=== PATIENT | female | born 1995 | race Caucasian/White ===

== ENCOUNTER 2021-09-12 12:45 | Outpatient (CLI) | payer BC | END 2021-09-12 23:59 | disposition home or self-care (01) | LOC: RAD 12:45 | PROVIDERS: ATTEND Specialist | DX: O26.843 Uterine size-date discrepancy, third trimester (principal); Z3A.33 33 weeks gestation of pregnancy | CPT/HCPCS: 76805 ==

== ENCOUNTER 2022-03-20 14:08 | Outpatient (CLI) | payer BC ==
[2022-03-20 14:41] LABS: BASOPHILS # (AUTO) 0.1 X10'3 (0-0.2); BASOPHILS % (AUTO) 0.6 % (0-1); EOSINOPHILS # (AUTO) 0.1 X10'3 (0-0.9); EOSINOPHILS % (AUTO) 1.1 % (0-6); HEMATOCRIT 39.7 % (35.0-45.0); HEMOGLOBIN 13.6 g/dl (12.0-16.0); LYMPHOCYTES # (AUTO) 1.8 X10'3 (1.1-4.8); LYMPHOCYTES % (AUTO) 21.5 % (21-51); MEAN CORPUSCULAR HEMOGLOBIN 29.8 PG (27.0-31.0); MEAN CORPUSCULAR HGB CONC 34.4 g/dL (33.0-36.5); MEAN CORPUSCULAR VOLUME 86.8 FL (78-98); MEAN PLATELET VOLUME 8.2 FL (7.4-10.4); MONOCYTES # (AUTO) 0.5 X10'3 (0-0.9); MONOCYTES % (AUTO) 6.4 % (2-12); NEUTROPHILS # (AUTO) 5.8 X10'3 (1.8-7.7); NEUTROPHILS % (AUTO) 70.4 % (42-75); PLATELET COUNT 235 X10'3 (140-440); RED BLOOD COUNT 4.57 X10'6 (4.20-5.60); RED CELL DISTRIBUTION WIDTH 12.8 % (11.5-14.5); WHITE BLOOD COUNT 8.2 X10'3 (4.5-11.0)
[2022-03-20 14:50] LABS: HEMOGLOBIN A1C 5.5 % (4.5-6.2)
[2022-03-20 14:50] LABS: CLARITY,URINE CLEAR (Clear); COLOR,URINE YELLOW (Yellow); GLUCOSE, URINE NEGATIVE (Neg); KETONES,URINE NEGATIVE (Neg); LEUKOCYTE ESTERASE ,URINE NEGATIVE (Neg); NITRITES, URINE NEGATIVE (Neg); OCCULT BLOOD,URINE NEGATIVE (Neg); PH,URINE 5.5 (4.8-8.0); PROTEIN,URINE NEGATIVE (Neg); UROBILINOGEN,URINE 0.2 E.U/dL (0.2-1.0)
[2022-03-20 14:58] LABS: ALANINE AMINOTRANSFERASE 33 U/L (12-78); ALBUMIN 4.3 G/DL (3.4-5.0); ALBUMIN/GLOBULIN RATIO 1.3 (1.1-1.5); ALKALINE PHOSPHATASE 143 IU/L (46-116); ANION GAP 11 (8-16); ASPARTATE AMINO TRANSFERASE 25 U/L (10-37); BILIRUBIN,TOTAL 0.3 MG/DL (0.1-1.0); BLOOD UREA NITROGEN 20 MG/DL (7-18); CALCIUM 8.9 MG/DL (8.5-10.1); CHLORIDE 104 MMOL/L (99-107); CREATININE 0.91 MG/DL (0.40-0.90); GLUCOSE 89 MG/DL (70-104); POTASSIUM 3.7 MMOL/L (3.5-5.1); SODIUM 142 MMOL/L (135-145); TOTAL CARBON DIOXIDE 26.7 MMOL/L (24-32); TOTAL PROTEIN 7.7 G/DL (6.4-8.2); eGFR 74 ML/MIN
[2022-03-20 15:05] LABS: UA COLLECTION TYPE CLN CATCH MIDSTREAM
[2022-03-20 15:07] LABS: CHOL/HDL RATIO 2.5 (0.00-4.99); CHOLESTEROL 164 MG/DL (0-200); HDL CHOLESTEROL 66 MG/DL (35-60); LDL CHOLESTEROL 85 MG/DL (50-100); TRIGLYCERIDES 120 MG/DL (20-135)
== END 2022-03-20 23:59 | disposition home or self-care (01) ==
LOC: LAB 14:08
PROVIDERS: ATTEND Nurse Practitioner
DX: Z00.00 Encounter for general adult medical examination without abnormal findings (principal)
CPT/HCPCS: 36415; 80053; 80061; 81003; 82306; 82607; 82746; 83036; 84439; 84443; 85025

== ENCOUNTER 2022-11-27 14:32 | Outpatient (CLI) | payer BC ==
[2022-11-27 14:59] LABS: BASOPHILS % (AUTO) 0.5 % (0-1); EOSINOPHILS # (AUTO) 0.1 X10'3 (0-0.9); EOSINOPHILS % (AUTO) 1.1 % (0-6); HEMATOCRIT 40.7 % (35.0-45.0); HEMOGLOBIN 13.8 g/dl (12.0-16.0); LYMPHOCYTES # (AUTO) 1.9 X10'3 (1.1-4.8); LYMPHOCYTES % (AUTO) 22.3 % (21-51); MEAN CORPUSCULAR HEMOGLOBIN 30.2 PG (27.0-31.0); MEAN CORPUSCULAR HGB CONC 33.9 g/dL (33.0-36.5); MEAN PLATELET VOLUME 8.2 FL (7.4-10.4); MONOCYTES # (AUTO) 0.6 X10'3 (0-0.9); MONOCYTES % (AUTO) 6.7 % (2-12); NEUTROPHILS % (AUTO) 69.4 % (42-75); PLATELET COUNT 221 X10'3 (140-440); RED BLOOD COUNT 4.57 X10'6 (4.20-5.60); RED CELL DISTRIBUTION WIDTH 12.8 % (11.5-14.5); WHITE BLOOD COUNT 8.7 X10'3 (4.5-11.0)
[2022-11-27 15:10] LABS: CLARITY,URINE SLIGHTLY CLOUDY (Clear); COLOR,URINE YELLOW (Yellow); GLUCOSE, URINE NEGATIVE (Neg); KETONES,URINE NEGATIVE (Neg); LEUKOCYTE ESTERASE ,URINE NEGATIVE (Neg); NITRITES, URINE NEGATIVE (Neg); OCCULT BLOOD,URINE NEGATIVE (Neg); PH,URINE 6.5 (4.8-8.0); PROTEIN,URINE NEGATIVE (Neg); UA COLLECTION TYPE CLN CATCH MIDSTREAM; UROBILINOGEN,URINE 0.2 E.U/dL (0.2-1.0)
[2022-11-27 15:22] LABS: RBC,URINE 0-2 /HPF (0-2); SQUAMOUS EPITHELIAL CELL,UR MODERATE /LPF (FEW); WBC,URINE 0-4 /HPF (0-4)
[2022-11-27 15:23] LABS: BACTERIA,URINE 1+ /HPF (Neg)
[2022-11-27 15:36] LABS: ALANINE AMINOTRANSFERASE 17 U/L (12-78); ALBUMIN/GLOBULIN RATIO 1.1 (1.1-1.5); ALKALINE PHOSPHATASE 101 IU/L (46-116); ANION GAP 8 (8-16); ASPARTATE AMINO TRANSFERASE 19 U/L (10-37); BILIRUBIN,TOTAL 0.2 MG/DL (0.1-1.0); BLOOD UREA NITROGEN 14 MG/DL (7-18); BUN/CREATININE RATIO 25.5 (6.6-38.0); CALCIUM 9.3 MG/DL (8.5-10.1); CHLORIDE 102 MMOL/L (99-107); CHOL/HDL RATIO 2.5 (0.00-4.99); CHOLESTEROL 139 MG/DL (0-200); CREATININE 0.55 MG/DL (0.40-0.90); GLUCOSE 87 MG/DL (70-104); HDL CHOLESTEROL 55 MG/DL (35-60); LDL CHOLESTEROL 66 MG/DL (50-100); POTASSIUM 3.5 MMOL/L (3.5-5.1); SODIUM 137 MMOL/L (135-145); TOTAL CARBON DIOXIDE 27.2 MMOL/L (24-32); TOTAL PROTEIN 7.5 G/DL (6.4-8.2); TRIGLYCERIDES 60 MG/DL (20-135); eGFR > 90 ML/MIN
[2022-11-27 15:41] LABS: HEMOGLOBIN A1C 4.9 % (4.5-6.2)
== END 2022-11-27 23:59 | disposition home or self-care (01) ==
LOC: LAB 14:32
PROVIDERS: ATTEND Nurse Practitioner
DX: Z00.00 Encounter for general adult medical examination without abnormal findings (principal)
CPT/HCPCS: 36415; 80053; 80061; 81001; 82306; 82607; 82746; 83036; 84439; 84443; 85025

== ENCOUNTER 2022-12-24 10:36 | Outpatient (CLI) | payer BC ==
[2022-12-24 11:23] LABS: CLARITY,URINE SLIGHTLY CLOUDY (Clear); COLOR,URINE YELLOW (Yellow); GLUCOSE, URINE NEGATIVE (Neg); KETONES,URINE NEGATIVE (Neg); LEUKOCYTE ESTERASE ,URINE TRACE (Neg); NITRITES, URINE NEGATIVE (Neg); OCCULT BLOOD,URINE TRACE-INTACT (Neg); PROTEIN,URINE NEGATIVE (Neg); UROBILINOGEN,URINE 0.2 E.U/dL (0.2-1.0)
[2022-12-24 11:27] LABS: UA COLLECTION TYPE CLN CATCH MIDSTREAM
[2022-12-24 11:34] LABS: BACTERIA,URINE 1+ /HPF (Neg); MUCUS STRANDS FEW /LPF (Neg); SQUAMOUS EPITHELIAL CELL,UR MANY /LPF (FEW)
[2022-12-24 11:48] LABS: URINE AMPHETAMINE SCREEN NEGATIVE (Neg); URINE BARBITUATE SCREEN NEGATIVE (Neg); URINE BENZODIAZEPINES SCREEN NEGATIVE (Neg); URINE CANNABINOID SCREEN NEGATIVE (Neg); URINE COCAINE SCREEN NEGATIVE (Neg); URINE METHADONE SCREEN NEGATIVE (Neg); URINE OPIATE SCREEN NEGATIVE (Neg); URINE PHENCYCLIDINE SCREEN NEGATIVE (Neg)
[2022-12-24 12:08] LABS: BASOPHILS % (AUTO) 0.6 % (0-1); EOSINOPHILS % (AUTO) 0.4 % (0-6); HEMATOCRIT 42.7 % (35.0-45.0); HEMOGLOBIN 14.7 g/dl (12.0-16.0); LYMPHOCYTES # (AUTO) 1.8 X10'3 (1.1-4.8); MEAN CORPUSCULAR HEMOGLOBIN 30.2 PG (27.0-31.0); MEAN CORPUSCULAR HGB CONC 34.4 g/dL (33.0-36.5); MEAN CORPUSCULAR VOLUME 87.9 FL (78-98); MEAN PLATELET VOLUME 8.3 FL (7.4-10.4); MONOCYTES # (AUTO) 0.4 X10'3 (0-0.9); MONOCYTES % (AUTO) 4.8 % (2-12); NEUTROPHILS # (AUTO) 6.5 X10'3 (1.8-7.7); NEUTROPHILS % (AUTO) 74.2 % (42-75); PLATELET COUNT 236 X10'3 (140-440); RED BLOOD COUNT 4.86 X10'6 (4.20-5.60); RED CELL DISTRIBUTION WIDTH 12.7 % (11.5-14.5); WHITE BLOOD COUNT 8.8 X10'3 (4.5-11.0)
[2022-12-24 12:45] LABS: HIV ANTIBODY 1&2 RAPID NON-REACTIVE (Neg)
[2022-12-25 14:01] LABS: HBSAG SCREEN Negative (Negative); HEPATITIS C VIRUS ANTIBODY Non Reactive (Non Reactive)
== END 2022-12-24 23:59 | disposition home or self-care (01) ==
LOC: LAB 10:36
PROVIDERS: ATTEND Specialist
DX: O23.41 Unspecified infection of urinary tract in pregnancy, first trimester (principal); N39.0 Urinary tract infection, site not specified; Z3A.00 Weeks of gestation of pregnancy not specified
CPT/HCPCS: 36415; 80305; 81001; 85025; 86592; 86703; 86762; 86803; 86885; 86900; 86901; 87088; 87340; 87522

== ENCOUNTER 2023-01-01 11:32 | Outpatient (CLI) | payer BC ==
[2023-01-01 15:19] LABS: CLARITY,URINE CLEAR (Clear); COLOR,URINE YELLOW (Yellow); GLUCOSE, URINE NEGATIVE (Neg); KETONES,URINE NEGATIVE (Neg); LEUKOCYTE ESTERASE ,URINE NEGATIVE (Neg); NITRITES, URINE NEGATIVE (Neg); OCCULT BLOOD,URINE NEGATIVE (Neg); PROTEIN,URINE NEGATIVE (Neg); UROBILINOGEN,URINE 0.2 E.U/dL (0.2-1.0)
[2023-01-01 15:39] LABS: UA COLLECTION TYPE CLN CATCH MIDSTREAM
== END 2023-01-01 23:59 | disposition home or self-care (01) ==
LOC: LAB 11:32
PROVIDERS: ATTEND Nurse Practitioner
DX: Z00.00 Encounter for general adult medical examination without abnormal findings (principal)
CPT/HCPCS: 81003

== ENCOUNTER 2023-04-20 09:00 | Outpatient (CLI) | payer BC | END 2023-04-20 23:59 | disposition home or self-care (01) | LOC: VAS 09:00 | PROVIDERS: ATTEND Specialist | DX: M79.605 Pain in left leg (principal); R60.0 Localized edema | CPT/HCPCS: 93971 ==

== ENCOUNTER 2024-01-01 14:17 | Outpatient (CLI) | payer BC ==
[2024-01-01 15:08] LABS: BASOPHILS # (AUTO) 0.1 X10'3 (0-0.2); BASOPHILS % (AUTO) 0.9 % (0-1); EOSINOPHILS # (AUTO) 0.1 X10'3 (0-0.9); HEMATOCRIT 39.9 % (35.0-45.0); HEMOGLOBIN 13.8 g/dl (12.0-16.0); LYMPHOCYTES # (AUTO) 2.1 X10'3 (1.1-4.8); LYMPHOCYTES % (AUTO) 32.3 % (21-51); MEAN CORPUSCULAR HEMOGLOBIN 30.7 PG (27.0-31.0); MEAN CORPUSCULAR HGB CONC 34.5 g/dL (33.0-36.5); MEAN CORPUSCULAR VOLUME 88.9 FL (78-98); MEAN PLATELET VOLUME 8.5 FL (7.4-10.4); MONOCYTES # (AUTO) 0.4 X10'3 (0-0.9); MONOCYTES % (AUTO) 6.1 % (2-12); NEUTROPHILS # (AUTO) 3.9 X10'3 (1.8-7.7); NEUTROPHILS % (AUTO) 58.7 % (42-75); PLATELET COUNT 208 X10'3 (140-440); RED BLOOD COUNT 4.48 X10'6 (4.20-5.60); RED CELL DISTRIBUTION WIDTH 12.9 % (11.5-14.5); WHITE BLOOD COUNT 6.6 X10'3 (4.5-11.0)
[2024-01-01 15:10] LABS: ALANINE AMINOTRANSFERASE 19 U/L (12-78); ALBUMIN 4.1 G/DL (3.4-5.0); ALBUMIN/GLOBULIN RATIO 1.1 (1.1-1.5); ALKALINE PHOSPHATASE 134 IU/L (46-116); ANION GAP 9 (8-16); ASPARTATE AMINO TRANSFERASE 17 U/L (10-37); BILIRUBIN,TOTAL 0.3 MG/DL (0.1-1.0); BLOOD UREA NITROGEN 15 MG/DL (7-18); CALCIUM 8.8 MG/DL (8.5-10.1); CHLORIDE 102 MMOL/L (99-107); CREATININE 0.79 MG/DL (0.40-0.90); GLUCOSE 125 MG/DL (70-104); POTASSIUM 3.8 MMOL/L (3.5-5.1); SODIUM 139 MMOL/L (135-145); TOTAL CARBON DIOXIDE 28.5 MMOL/L (24-32); TOTAL PROTEIN 7.8 G/DL (6.4-8.2); eGFR 86 ML/MIN
[2024-01-01 15:19] LABS: CHOL/HDL RATIO 2.5 (0.00-4.99); CHOLESTEROL 154 MG/DL (0-200); HDL CHOLESTEROL 62 MG/DL (35-60); LDL CHOLESTEROL 78 MG/DL (50-100); THYROID STIMULATING HORMONE 0.65 ulU/ml (0.34-4.50); TRIGLYCERIDES 127 MG/DL (20-135)
[2024-01-03 08:22] LABS: FOLATE SERUM(FOLIC) >20.0 ng/mL (>3.0)
[2024-01-05 07:13] LABS: VITAMIN D, 25-HYDROXY 39.9 ng/mL (30.0-100.0)
== END 2024-01-01 23:59 | disposition home or self-care (01) ==
LOC: LAB 14:17
PROVIDERS: ATTEND Registered Nurse
DX: Z00.00 Encounter for general adult medical examination without abnormal findings (principal); L25.9 Unspecified contact dermatitis, unspecified cause; E55.9 Vitamin D deficiency, unspecified; Z82.49 Family history of ischemic heart disease and other diseases of the circulatory system
CPT/HCPCS: 36415; 80053; 80061; 82306; 82607; 82746; 84443; 85025

== ENCOUNTER → 2024-03-02 | Outpatient (CLI) | payer BC ==
[2024-03-02 08:40] LABS: BASOPHILS # (AUTO) 0.1 X10'3 (0-0.2); BASOPHILS % (AUTO) 0.9 % (0-1); EOSINOPHILS # (AUTO) 0.1 X10'3 (0-0.9); EOSINOPHILS % (AUTO) 0.8 % (0-6); HEMATOCRIT 43.9 % (35.0-45.0); LYMPHOCYTES # (AUTO) 1.2 X10'3 (1.1-4.8); LYMPHOCYTES % (AUTO) 17.7 % (21-51); MEAN CORPUSCULAR HEMOGLOBIN 30.5 PG (27.0-31.0); MEAN CORPUSCULAR HGB CONC 34.3 g/dL (33.0-36.5); MEAN PLATELET VOLUME 8.7 FL (7.4-10.4); MONOCYTES # (AUTO) 0.4 X10'3 (0-0.9); MONOCYTES % (AUTO) 6.3 % (2-12); NEUTROPHILS # (AUTO) 5.1 X10'3 (1.8-7.7); NEUTROPHILS % (AUTO) 74.3 % (42-75); PLATELET COUNT 210 X10'3 (140-440); RED BLOOD COUNT 4.94 X10'6 (4.20-5.60); RED CELL DISTRIBUTION WIDTH 12.8 % (11.5-14.5); WHITE BLOOD COUNT 6.9 X10'3 (4.5-11.0)
[2024-03-02 08:45] LABS: BILIRUBIN,URINE NEGATIVE (Neg); CLARITY,URINE CLEAR (Clear); COLOR,URINE YELLOW (Yellow); GLUCOSE, URINE NEGATIVE (Neg); KETONES,URINE NEGATIVE (Neg); LEUKOCYTE ESTERASE ,URINE NEGATIVE (Neg); NITRITES, URINE NEGATIVE (Neg); OCCULT BLOOD,URINE NEGATIVE (Neg); PROTEIN,URINE NEGATIVE (Neg); UROBILINOGEN,URINE 0.2 E.U/dL (0.2-1.0)
[2024-03-02 08:50] LABS: UA COLLECTION TYPE CLN CATCH MIDSTREAM
[2024-03-02 09:15] LABS: ALANINE AMINOTRANSFERASE 30 U/L (12-78); ALBUMIN 4.4 G/DL (3.4-5.0); ALBUMIN/GLOBULIN RATIO 1.1 (1.1-1.5); ALKALINE PHOSPHATASE 99 IU/L (46-116); ASPARTATE AMINO TRANSFERASE 19 U/L (10-37); BILIRUBIN,TOTAL 0.6 MG/DL (0.1-1.0); BLOOD UREA NITROGEN 15 MG/DL (7-18); BUN/CREATININE RATIO 18.5 (10.0-20.0); CALCIUM 9.4 MG/DL (8.5-10.1); CREATININE 0.81 MG/DL (0.40-0.90); GLUCOSE 65 MG/DL (70-104); THYROID STIMULATING HORMONE 0.77 ulU/ml (0.34-4.50); TOTAL CARBON DIOXIDE 26.4 MMOL/L (24-32); TOTAL PROTEIN 8.5 G/DL (6.4-8.2); eGFR 84 ML/MIN
[2024-03-02 09:21] LABS: ANION GAP 16 (8-16); CHLORIDE 102 MMOL/L (99-107); POTASSIUM 4.3 MMOL/L (3.5-5.1); SODIUM 144 MMOL/L (135-145)
[2024-03-02 09:57] LABS: HEMOGLOBIN A1C 5.1 % (4.5-6.2)
[2024-03-03 11:59] LABS: THYROXINE (T4) 7.3 ug/dL (4.5-12.0)
[2024-03-03 13:39] LABS: FOLATE SERUM(FOLIC) 18.3 ng/mL (>3.0)
== END | disposition home or self-care (01) ==
LOC: LAB 08:06
PROVIDERS: ATTEND Nurse Practitioner Family
DX: Z00.01 Encounter for general adult medical examination with abnormal findings (principal); R53.83 Other fatigue; R73.01 Impaired fasting glucose; Z13.29 Encounter for screening for other suspected endocrine disorder
CPT/HCPCS: 36415; 80053; 81003; 82607; 82746; 83036; 84436; 84443; 85025

== ENCOUNTER 2024-06-07 09:52 | Outpatient (CLI) | payer BC ==
[2024-06-07 10:45] LABS: BASOPHILS % (AUTO) 0.3 % (0-1); EOSINOPHILS % (AUTO) 0.6 % (0-6); HEMATOCRIT 41.9 % (35.0-45.0); HEMOGLOBIN 14.2 g/dl (12.0-16.0); LYMPHOCYTES # (AUTO) 1.3 X10'3 (1.1-4.8); LYMPHOCYTES % (AUTO) 16.3 % (21-51); MEAN CORPUSCULAR HEMOGLOBIN 29.9 PG (27.0-31.0); MEAN CORPUSCULAR HGB CONC 33.9 g/dL (33.0-36.5); MEAN CORPUSCULAR VOLUME 88.1 FL (78-98); MONOCYTES # (AUTO) 0.4 X10'3 (0-0.9); MONOCYTES % (AUTO) 5.3 % (2-12); NEUTROPHILS # (AUTO) 6.3 X10'3 (1.8-7.7); NEUTROPHILS % (AUTO) 77.5 % (42-75); PLATELET COUNT 207 X10'3 (140-440); RED BLOOD COUNT 4.76 X10'6 (4.20-5.60); RED CELL DISTRIBUTION WIDTH 13.3 % (11.5-14.5); WHITE BLOOD COUNT 8.1 X10'3 (4.5-11.0)
[2024-06-07 10:56] LABS: BILIRUBIN,URINE NEGATIVE (Neg); CLARITY,URINE CLOUDY (Clear); COLOR,URINE YELLOW (Yellow); GLUCOSE, URINE NEGATIVE (Neg); KETONES,URINE NEGATIVE (Neg); LEUKOCYTE ESTERASE ,URINE SMALL (Neg); NITRITES, URINE NEGATIVE (Neg); OCCULT BLOOD,URINE NEGATIVE (Neg); PROTEIN,URINE NEGATIVE (Neg)
[2024-06-07 11:21] LABS: UA COLLECTION TYPE CLN CATCH MIDSTREAM
[2024-06-07 11:22] LABS: BACTERIA,URINE 4+ /HPF (Neg); SQUAMOUS EPITHELIAL CELL,UR MANY /LPF (FEW)
[2024-06-08 13:18] LABS: RUBELLA ANTIBODIES, IGG 1.51 index (Immune >0.99)
== END 2024-06-07 23:59 | disposition home or self-care (01) ==
LOC: LAB 09:52
PROVIDERS: ATTEND Family Medicine
DX: Z33.1 Pregnant state, incidental (principal)
CPT/HCPCS: 36415; 81001; 83036; 85025; 86762; 86780; 86803; 86885; 86900; 86901; 87088; 87340; 87389; 87491; 87522

== ENCOUNTER 2025-03-06 09:27 | Outpatient (CLI) | payer BC ==
[2025-03-06 10:03] LABS: BASOPHILS # (AUTO) 0.1 X10'3 (0-0.2); BASOPHILS % (AUTO) 0.8 % (0-1); EOSINOPHILS # (AUTO) 0.3 X10'3 (0-0.9); EOSINOPHILS % (AUTO) 4.7 % (0-6); HEMATOCRIT 40.7 % (35.0-45.0); HEMOGLOBIN 13.5 g/dl (12.0-16.0); LYMPHOCYTES # (AUTO) 2.2 X10'3 (1.1-4.8); LYMPHOCYTES % (AUTO) 32.5 % (21-51); MEAN CORPUSCULAR HEMOGLOBIN 27.6 PG (27.0-31.0); MEAN CORPUSCULAR HGB CONC 33.1 g/dL (33.0-36.5); MEAN CORPUSCULAR VOLUME 83.4 FL (78-98); MEAN PLATELET VOLUME 8.1 FL (7.4-10.4); MONOCYTES # (AUTO) 0.5 X10'3 (0-0.9); NEUTROPHILS # (AUTO) 3.8 X10'3 (1.8-7.7); PLATELET COUNT 278 X10'3 (140-440); RED BLOOD COUNT 4.88 X10'6 (4.20-5.60); RED CELL DISTRIBUTION WIDTH 16.3 % (11.5-14.5); WHITE BLOOD COUNT 6.9 X10'3 (4.5-11.0)
[2025-03-06 10:04] LABS: BILIRUBIN,URINE NEGATIVE (Neg); CLARITY,URINE CLEAR (Clear); COLOR,URINE YELLOW (Yellow); GLUCOSE, URINE NEGATIVE (Neg); KETONES,URINE NEGATIVE (Neg); LEUKOCYTE ESTERASE ,URINE NEGATIVE (Neg); NITRITES, URINE NEGATIVE (Neg); OCCULT BLOOD,URINE NEGATIVE (Neg); PROTEIN,URINE NEGATIVE (Neg); UROBILINOGEN,URINE 0.2 E.U/dL (0.2-1.0)
[2025-03-06 10:10] LABS: UA COLLECTION TYPE CLN CATCH MIDSTREAM
[2025-03-06 10:42] LABS: ALANINE AMINOTRANSFERASE 29 U/L (12-78); ALBUMIN 4.4 G/DL (3.4-5.0); ALBUMIN/GLOBULIN RATIO 1.2 (1.1-1.5); ALKALINE PHOSPHATASE 135 IU/L (46-116); ANION GAP 10 (8-16); ASPARTATE AMINO TRANSFERASE 21 U/L (10-37); BILIRUBIN,TOTAL 0.3 MG/DL (0.1-1.0); BLOOD UREA NITROGEN 16 MG/DL (7-18); BUN/CREATININE RATIO 18.2 (10.0-20.0); CALCIUM 9.2 MG/DL (8.5-10.1); CHLORIDE 104 MMOL/L (99-107); CHOL/HDL RATIO 3.5 (0.00-4.99); CHOLESTEROL 189 MG/DL (0-200); CREATININE 0.88 MG/DL (0.40-0.90); GLUCOSE 80 MG/DL (70-104); HDL CHOLESTEROL 54 MG/DL (35-60); HEMOGLOBIN A1C 5.5 % (4.5-6.2); LDL CHOLESTEROL 108 MG/DL (50-100); POTASSIUM 4.1 MMOL/L (3.5-5.1); SODIUM 138 MMOL/L (135-145); THYROID STIMULATING HORMONE 0.53 ulU/ml (0.34-4.50); TOTAL CARBON DIOXIDE 24.2 MMOL/L (24-32); TOTAL PROTEIN 8.2 G/DL (6.4-8.2); TRIGLYCERIDES 58 MG/DL (20-135); eGFR 75 ML/MIN
[2025-03-07 08:17] LABS: THYROXINE (T4) 7.9 ug/dL (4.5-12.0)
== END 2025-03-06 23:59 | disposition home or self-care (01) ==
LOC: RAD 09:27
PROVIDERS: ATTEND Nurse Practitioner Family
DX: J30.2 Other seasonal allergic rhinitis (principal); R53.83 Other fatigue; Z13.220 Encounter for screening for lipoid disorders; Z13.29 Encounter for screening for other suspected endocrine disorder; E55.9 Vitamin D deficiency, unspecified; Z13.1 Encounter for screening for diabetes mellitus
CPT/HCPCS: 36415; 80053; 80061; 81003; 82306; 82785; 83036; 84436; 84443; 85025; 86003